=== PATIENT | female | born 1940 | race Caucasian/White ===

== ENCOUNTER → 2018-09-02 11:31 | Outpatient (CLI) | payer MEDICARE, SELFPAY ==
--- NOTE | 2018-09-02 11:37 | BI_ITS ---
MAMMOGRAPHY - BILATERAL SCREENING REASON FOR EXAM: Female, 78 years old. Routine annual screening examination. PERTINENT HISTORY: Non-contributory. TECHNIQUE: Digital bilateral breast cassandra (3D mammographic acquisition) in the CC and MLO projections. 2-D mediolateral oblique (MLO) and craniocaudad (CC) views of both breasts were obtained. CAD: Full Field Digital Mammography with Computer Added Detection was performed. COMPARISON: Comparison is made with prior study dated November 20, 2016 and November 20, 2015. FINDINGS: Breast Composition: There are scattered areas of fibroglandular density. There are no dominant masses or suspicious calcifications. No other significant abnormalities are identified. There has been no significant change since the prior study. BI/SCREENING MAMM (CAD), BILAT IMPRESSION: Stable bilateral screening mammogram. Yearly follow-up mammogram recommended. (A) ASSESSMENT CATEGORY: BIRADS Category 1: Negative. A letter regarding these results will be sent to the patient by the facility within 30 days. Approximately 10% of breast cancers are not detected by mammography. A normal mammogram should not delay biopsy of a clinically suspicious abnormality. [id number] Electronically Signed: Radames Hawthorne MD at 13:10 EST , Service support ,
--- NOTE | 2018-09-02 11:38 | BD_ITS ---
STUDY: DUAL ENERGY X-RAY ABSORPTIOMETRY / DXA REASON FOR EXAM: Female, 78 years old. The patient is postmenopausal. Loss of height. TECHNIQUE: Bone Mineral Density (BMD) measurements of lumbar spine and bilateral hips were obtained. COMPARISON: None. FINDINGS: Lumbar Spine (L1-L4): g/cm2 (0.826) / T-score (-2.8) / Z-score (-1.1) Findings are suggestive of osteoporosis with a high fracture risk. Increased thoracic kyphosis. Left Femur Total: g/cm2 (0.738) / T-score (-2.1) / Z-score (-0.3) Left Femoral Neck: g/cm2 (0.781) / T-score (-1.8) / Z-score (0.1) Right Femur Total: g/cm2 (0.685) / T-score (-2.6) / Z-score (-0.8) Right Femoral Neck: g/cm2 (0.791) / T-score (-1.8) / Z-score (0.2) BD/Dexa Bone Density Study IMPRESSION: The patient is considered osteoporotic as outlined below according to World [employer] Organization (WHO) criteria with a high fracture risk. Reference Information: The T-score is the number of standard deviations above or below the standard which is normal for young adults at their peak bone mineral density. The World Health Organization (WHO) interprets the T-scores as follows: Above -1 Normal bone density Between -1 and -2.5 Osteopenia Equal to / or below -2.5 Osteoporosis As a practical clinical guideline, osteopenia may be graded as follows: Mild -1 through -1.5 Moderate -1.6 through -2.0 Severe -2.1 through -2.4 The Z-score is the number of standard deviations above or below age-matched controls. A Z-score of less than -1.5 would be considered abnormal. References: 1. NIH Osteoporosis and Related Bone Diseases http://www.osteo.org 2. International Society for Clinical Densitometry http://www.iscd.org 3. National Osteoporosis Foundation http://www.nof.org Electronically Signed: Radames Hawthorne MD at 15:33 EST , Service support ,
== END ==
PROVIDERS: Family Provider Internal Medicine; PCP Internal Medicine; Referring Provider Internal Medicine; Visit Provider Internal Medicine
DX: Z78.0 Asymptomatic menopausal state (principal); Z12.31 Encounter for screening mammogram for malignant neoplasm of breast
CPT/HCPCS: 77063; 77067; 77080

== ENCOUNTER → 2021-03-07 08:12 | Outpatient (CLI) | payer MEDICARE, SELFPAY ==
--- NOTE | 2021-03-07 08:17 | NM_ITS ---
CLINICAL: 80-year-old female with reported history of clinical hyperthyroidism. I-123 THYROID UPTAKE and SCAN COMPARISON: None available FINDINGS: The patient was administered a 323 uCi I-123 capsule by mouth. The 4-hour I-123 radioactive iodine thyroidal uptake was calculated to be 9.8 % (normal 5 to 25 %). The 24-hour I-123 radioactive iodine thyroidal uptake was calculated to be 45.9 % (normal 5 to 40 %). The I-123 thyroid scan demonstrates homogeneous radiopharmaceutical concentration throughout both lobes of a U -shaped thyroid gland. There are no colloidal parenchymal hypofunctioning-cold nodules noted in either lobe of the thyroid gland. NM/Thyroid Uptake Single or Mult IMPRESSION: 1. NORMAL 4- and ABNORMAL ELEVATED 24-hour I-123 radioactive iodine thyroidal uptakes. 2. 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 3. If not previously obtained correlation with in-vitro thyroid function studies is recommended. Pending Final Proof Editing
== END ==
PROVIDERS: PCP Internal Medicine; Referring Provider Internal Medicine; Visit Provider Internal Medicine
DX: E05.90 Thyrotoxicosis, unspecified without thyrotoxic crisis or storm (principal)
CPT/HCPCS: 78012; A9516

== ENCOUNTER → 2021-12-03 | Outpatient (CLI) | payer MEDICARE, SELFPAY ==
[2021-12-03 13:07] LABS: Free T3 2.2 pg/mL (2.18-3.98); T4 Free Direct 0.97 ng/dL (0.76-1.46); Thyroid Stim Hormone (TSH) < 0.01 uIU/mL (0.358-3.74)
== END | disposition home or self-care (01) ==
LOC: BIMLAB 09:33
PROVIDERS: PCP Internal Medicine; Referring Provider Internal Medicine Endocrinology, Diabetes & Metabolism; Visit Provider Internal Medicine Endocrinology, Diabetes & Metabolism
DX: E05.90 Thyrotoxicosis, unspecified without thyrotoxic crisis or storm (principal)
CPT/HCPCS: 36415; 84439; 84443; 84481

== ENCOUNTER → 2022-01-14 | Outpatient (CLI) | payer MEDICARE, SELFPAY ==
[2022-01-14 12:59] LABS: Free T3 2.2 pg/mL (2.18-3.98); T4 Free Direct 0.74 ng/dL (0.76-1.46); Thyroid Stim Hormone (TSH) 1.75 uIU/mL (0.358-3.74)
== END | disposition home or self-care (01) ==
LOC: BIMLAB 10:09
PROVIDERS: PCP Internal Medicine; Referring Provider Internal Medicine Endocrinology, Diabetes & Metabolism; Visit Provider Internal Medicine Endocrinology, Diabetes & Metabolism
DX: E05.90 Thyrotoxicosis, unspecified without thyrotoxic crisis or storm (principal)
CPT/HCPCS: 36415; 84439; 84443; 84481

== ENCOUNTER → 2022-03-11 | Outpatient (CLI) | payer MEDICARE, SELFPAY ==
[2022-03-11 13:06] LABS: Free T3 2.3 pg/mL (2.18-3.98); T4 Free Direct 0.91 ng/dL (0.76-1.46); Thyroid Stim Hormone (TSH) 1.16 uIU/mL (0.358-3.74)
== END | disposition home or self-care (01) ==
LOC: BIMLAB 10:07
PROVIDERS: PCP Internal Medicine; Referring Provider Internal Medicine Endocrinology, Diabetes & Metabolism; Visit Provider Internal Medicine Endocrinology, Diabetes & Metabolism
DX: E05.90 Thyrotoxicosis, unspecified without thyrotoxic crisis or storm (principal)
CPT/HCPCS: 36415; 84439; 84443; 84481

== ENCOUNTER → 2022-06-10 | Outpatient (CLI) | payer MEDICARE, SELFPAY ==
[2022-06-10 12:49] LABS: Free T3 2.1 pg/mL (2.18-3.98); T4 Free Direct 0.96 ng/dL (0.76-1.46)
== END | disposition home or self-care (01) ==
LOC: BIMLAB 10:12
PROVIDERS: PCP Internal Medicine; Visit Provider Internal Medicine Endocrinology, Diabetes & Metabolism
DX: E05.90 Thyrotoxicosis, unspecified without thyrotoxic crisis or storm (principal)
CPT/HCPCS: 36415; 84439; 84443; 84481

== ENCOUNTER → 2022-10-16 | Outpatient (CLI) | payer MEDICARE, SELFPAY ==
[2022-10-16 12:39] LABS: Vitamin D,25 Hydroxy 70.6 ng/mL
[2022-10-16 12:44] LABS: ALB/GLOB Ratio 1.1 RATIO (0.9-2.4); AST(SGOT) 15 U/L (15-37); Alanine Aminotransfer ALT/SGPT 23 U/L (13-56); Albumin, Serum 3.8 g/dL (3.2-5.0); Alkaline Phosphatase 111 U/L (45-117); Anion Gap 10 (5-15); BUN 28 mg/dL (7-18); Calcium,Total 9.7 mg/dL (8.5-10.1); Chloride 102 mmol/L (98-107); EST Glomerular Filtration Rate 57 mL/min (>60); Est Glom Filt Rate - Afr Amer 69 mL/min (>60); Free T3 2.4 pg/mL (2.18-3.98); Globulin 3.5 g/dL (2.2-4.2); Glucose 96 mg/dL (74-106); Potassium 4.7 mmol/L (3.5-5.1); Protein, Total 7.3 g/dL (6.4-8.2); Sodium Level 139 mmol/L (136-145); T4 Free Direct 0.96 ng/dL (0.76-1.46); Thyroid Stim Hormone (TSH) 1.09 uIU/mL (0.358-3.74)
== END | disposition home or self-care (01) ==
LOC: BIMLAB 10:15
PROVIDERS: PCP Internal Medicine; Referring Provider Internal Medicine Endocrinology, Diabetes & Metabolism; Visit Provider Internal Medicine Endocrinology, Diabetes & Metabolism
DX: E05.90 Thyrotoxicosis, unspecified without thyrotoxic crisis or storm (principal); E55.9 Vitamin D deficiency, unspecified
CPT/HCPCS: 36415; 80053; 82306; 84439; 84443; 84481

== ENCOUNTER → 2023-04-17 | Outpatient (CLI) | payer MEDICARE, SELFPAY ==
[2023-04-17 12:24] LABS: Free T3 2.4 pg/mL (2.18-3.98); T4 Free Direct 0.96 ng/dL (0.76-1.46); Thyroid Stim Hormone (TSH) 1.79 uIU/mL (0.358-3.74)
== END | disposition home or self-care (01) ==
LOC: BIMLAB 10:19
PROVIDERS: Internal Medicine Endocrinology, Diabetes & Metabolism; PCP Internal Medicine; Visit Provider Internal Medicine
DX: E05.90 Thyrotoxicosis, unspecified without thyrotoxic crisis or storm (principal)
CPT/HCPCS: 36415; 84439; 84443; 84481

== ENCOUNTER → 2023-10-13 | Outpatient (CLI) | payer MEDICARE, SELFPAY ==
[2023-10-13 16:35] LABS: Free T3 2.4 pg/mL (2.18-3.98); T4 Free Direct 1.04 ng/dL (0.76-1.46); Thyroid Stim Hormone (TSH) 1.15 uIU/mL (0.358-3.74)
== END | disposition home or self-care (01) ==
LOC: BIMLAB 12:27
PROVIDERS: PCP Internal Medicine; Referring Provider Internal Medicine Endocrinology, Diabetes & Metabolism; Visit Provider Internal Medicine Endocrinology, Diabetes & Metabolism
DX: E05.90 Thyrotoxicosis, unspecified without thyrotoxic crisis or storm (principal)
CPT/HCPCS: 36415; 84439; 84443; 84481

== ENCOUNTER → 2024-04-12 | Outpatient (CLI) | payer MEDICARE, SELFPAY ==
[2024-04-12 12:25] LABS: Vitamin D,25 Hydroxy 70.1 ng/mL
[2024-04-12 12:50] LABS: AST(SGOT) 16 U/L (15-37); Alanine Aminotransfer ALT/SGPT 20 U/L (13-56); Albumin, Serum 3.7 g/dL (3.2-5.0); Alkaline Phosphatase 111 U/L (45-117); Anion Gap 7 (5-15); BUN 33 mg/dL (7-18); BUN/Creat Ratio 29.2 RATIO (10-20); Calcium,Total 9.9 mg/dL (8.5-10.1); Chloride 107 mmol/L (98-107); Creatinine, Serum 1.13 mg/dL (0.55-1.02); EST Glomerular Filtration Rate 49 mL/min (>60); Est Glom Filt Rate - Afr Amer 59 mL/min (>60); Globulin 3.8 g/dL (2.2-4.2); Glucose 90 mg/dL (74-106); Potassium 4.6 mmol/L (3.5-5.1); Protein, Total 7.5 g/dL (6.4-8.2); Sodium Level 140 mmol/L (136-145); T4 Free Direct 0.91 ng/dL (0.76-1.46)
== END | disposition home or self-care (01) ==
LOC: BIMLAB 10:24
PROVIDERS: PCP Internal Medicine; Referring Provider Internal Medicine Endocrinology, Diabetes & Metabolism; Visit Provider Internal Medicine Endocrinology, Diabetes & Metabolism
DX: E05.90 Thyrotoxicosis, unspecified without thyrotoxic crisis or storm (principal); M81.0 Age-related osteoporosis without current pathological fracture; I10 Essential (primary) hypertension; E55.9 Vitamin D deficiency, unspecified
CPT/HCPCS: 36415; 80053; 82306; 84439; 84443

== ENCOUNTER → 2024-05-03 | Outpatient (CLI) | payer MEDICARE, SELFPAY ==
--- NOTE | 2024-05-03 14:46 | ECHOD_ITS ---
Reason For Study: Murmur Procedure This was a 2D Doppler, Color Flow transthoracic echocardiogram. Exam performed in department. Left Ventricle Normal LV size. Left ventricular systolic function is normal. The left ventricular ejection fraction is 60 %. No regional wall motion abnormalities noted. Right Ventricle Normal RV size. Normal systolic function. Atria Normal left atrium. Normal right atrium. Mitral Valve Bileaflet diffuse mitral valve thickening. Moderately severe (3+) eccentric mitral valve insufficiency. Tricuspid Valve Normal tricuspid valve. Mild (1+) tricuspid valve insufficiency. Pulmonary artery systolic pressure is 38 mmHg. Aortic Valve Trisinus/trileaflet aortic valve. Pulmonic Valve Normal pulmonic valve. Great Vessels Normal aortic root. The pulmonary artery is normal size. Inferior vena cava collapse with respiration. Pericardium/Pleural No pericardial effusion. MMode/2D Measurements & Calculations LVIDd: 4.4 cm IVSd: 1.0 cm LVOT diam: 1.8 cm LVIDs: 2.9 cm LVPWd: 0.90 cm LVOT area: 2.4 cm2 RVDd: 3.4 cm FS: 33.8 % LA dimension: 3.6 cm LAV(MOD-bp): 59.7 ml LA A4 area: 20.1 cm2 LAV(MOD-bp) Indexed: 38.6 ml/m2 LAV(MOD-sp2): 51.4 ml LAV(MOD-sp4): 62.9 ml TAPSE: 1.9 cm RA A4 area: 10.7 cm2 Time Measurements MV dec time: 0.13 sec Doppler Measurements & Calculations MV E max brien: 111.8 cm/sec Lat Peak E' Brien: 11.5 cm/sec Med Peak E' Brien: 6.9 cm/sec MV A max brien: 96.3 cm/sec E/E' lat: 9.7 E/E' med: 16.1 MV E/A: 1.2 MV V2 max: 122.4 cm/sec MV P1/2t max brien: 124.0 cm/sec Ao V2 max: 150.7 cm/sec MV max P.0 mmHg MV P1/2t: 47.8 msec Ao max P.1 mmHg MV V2 mean: 60.7 cm/sec MV dec slope: 759.3 cm/sec2 Ao V2 mean: 104.5 cm/sec MV mean P.8 mmHg Ao mean P.0 mmHg MV V2 VTI: 35.4 cm MVA(P1/2t): 4.6 cm2 Ao V2 VTI: 32.9 cm MVA(VTI): 1.5 cm2 AV (velocity ratio): 0.65 SHAMIR(I,D): 1.6 cm2 SHAMIR(V,D): 1.6 cm2 LV V1 max: 98.9 cm/sec MR max brien: 535.3 cm/sec SV(LVOT): 51.8 ml LV V1 max P.9 mmHg MR max P.6 mmHg LV V1 mean P.0 mmHg MR mean brien: 391.2 cm/sec LV V1 mean: 66.4 cm/sec MR mean P.3 mmHg LV V1 VTI: 21.5 cm MR VTI: 163.0 cm PA V2 max: 78.2 cm/sec TR max brien: 294.0 cm/sec PA max PG (full): 0.94 mmHg TR max P.6 mmHg ECHO/Echo Complete Interpretation Summary Normal LV size. Left ventricular systolic function is normal. The left ventricular ejection fraction is 60 %. Bileaflet diffuse mitral valve thickening. Moderately severe (3+) eccentric mitral valve insufficiency. Mild (1+) tricuspid valve insufficiency. Ordering Physician: Inocencia Ledezma Referring Physician: Inocencia Ledezma Performed By: Greg Nayak and Student
== END | disposition home or self-care (01) ==
PROVIDERS: PCP Internal Medicine; Referring Provider Internal Medicine; Visit Provider Internal Medicine
DX: R01.1 Cardiac murmur, unspecified (principal)
CPT/HCPCS: 93306

== ENCOUNTER → 2024-10-21 | Outpatient (CLI) | payer MEDICARE, SELFPAY ==
[2024-10-21 16:56] LABS: Free T3 2.8 pg/mL (2.18-3.98); Thyroid Stim Hormone (TSH) 0.924 uIU/mL (0.300-4.200)
== END | disposition home or self-care (01) ==
LOC: BIMLAB 14:12
PROVIDERS: PCP Internal Medicine; Visit Provider Internal Medicine Endocrinology, Diabetes & Metabolism
DX: E05.90 Thyrotoxicosis, unspecified without thyrotoxic crisis or storm (principal)
CPT/HCPCS: 36415; 84439; 84443; 84481

== ENCOUNTER → 2025-04-19 | Outpatient (CLI) | payer MEDICARE, SELFPAY ==
[2025-04-19 16:35] LABS: Free T3 2.5 pg/mL (2.18-3.98); Vitamin D,25 Hydroxy 66.1 ng/mL (30-100)
== END | disposition home or self-care (01) ==
PROVIDERS: PCP Internal Medicine; Referring Provider Internal Medicine Endocrinology, Diabetes & Metabolism; Visit Provider Internal Medicine Endocrinology, Diabetes & Metabolism
DX: E55.9 Vitamin D deficiency, unspecified (principal); E03.9 Hypothyroidism, unspecified; E05.90 Thyrotoxicosis, unspecified without thyrotoxic crisis or storm; M81.0 Age-related osteoporosis without current pathological fracture
CPT/HCPCS: 36415; 82306; 84439; 84443; 84481

== ENCOUNTER → 2025-06-30 | Outpatient (CLI) | payer MEDICARE, SELFPAY ==
[2025-06-30 10:54] LABS: Creatinine, Urine (random) 69.90 mg/dL (28.00-217.00); Microalbumin,Random Urine 43.9 mg/L (<20 mg/L)
[2025-06-30 10:55] LABS: Hematocrit 44.1 % (37-47); Hemoglobin 14.2 g/dL (12.0-15.0); Immature Granulocytes Count 0.040 X10^3/uL (0.0-0.0); Mean Corp Hgb Conc 32.2 g/dL (32-36); Mean Corpuscular Volume 96.7 fL (81-99); Mean Platelet Vol. 10.9 fl (6.2-12.0); NRBC Flagged by Analyzer 0 % (0-5); Platelet Count 290 K/mm3 (150-450); RBC Distribution Width CV 13.0 % (11.6-14.6); RBC Distribution Width SD 46.4 fl (35.1-43.9); Red Blood Count 4.56 M/mm3 (4.2-5.4); White Blood Count 6.7 K/mm3 (4.4-11.0)
[2025-06-30 10:57] LABS: Color, Urine Yellow (Yellow); Glucose, Dipstick Normal (Normal); Ketone-Dipstick Negative (Negative); Leukocyte Esterase-Dipstick 500 /ul (Negative); Nitrite-Dipstick Negative (Negative); Occult Blood-Urine Negative /ul (Negative); Protein-Dipstick 15 mg/dl (Negative); Specific Gravity, Urine 1.005 (1.002-1.030); Urine Bilirubin Dipstick Negative (Negative)
[2025-06-30 11:17] LABS: AST(SGOT) 16 U/L (<=31); Alanine Aminotransfer ALT/SGPT 12 U/L (<=34); Albumin, Serum 4.3 g/dL (3.4-4.8); Alkaline Phosphatase 106 U/L (35-104); Anion Gap 13 (5-15); BUN 22 mg/dL (4-19); BUN/Creat Ratio 23.2 RATIO (10-20); Calcium,Total 10.3 mg/dL (7.6-11.0); Carbon Dioxide 26.1 mmol/L (21.0-32.0); Chloride 101 mmol/L (98-108); Cholesterol 221 mg/dL (<=200); Globulin 2.7 g/dL (2.2-4.2); Glucose 95 mg/dL (70-99); Low Density Lipoprotein Calc. 105 mg/dL; Potassium 4.1 mmol/L (3.3-5.1); Triglycerides 170 mg/dL; Very Low Density Lipoprotein 34 mg/dL (5-40); Vitamin D,25 Hydroxy 70.7 ng/mL (30-100); cholesterol:hdl ratio screen 2.53
[2025-07-04 21:58] LABS: Vitamin B12 522 pg/mL (180-914)
== END | disposition home or self-care (01) ==
LOC: CIMLAB 08:36
PROVIDERS: PCP Internal Medicine; Referring Provider Internal Medicine; Visit Provider Internal Medicine
DX: E78.00 Pure hypercholesterolemia, unspecified (principal); I12.9 Hypertensive chronic kidney disease with stage 1 through stage 4 chronic kidney disease, or unspecified chronic kidney disease; R73.09 Other abnormal glucose; N18.9 Chronic kidney disease, unspecified; E55.9 Vitamin D deficiency, unspecified
CPT/HCPCS: 36415; 80053; 80061; 81002; 82043; 82306; 82570; 82607; 85025